=== PATIENT | female | born 1980 | race Caucasian/White ===

== ENCOUNTER 2016-11-13 12:22 | Emergency (ER) | payer BC, OTHER ==
[~2016-11-13] VITALS: Ht 175.3 cm; Wt 69.8 kg
--- NOTE | ~2016-11-13 | EKG ---
[address] [address] ELECTROCARDIOGRAM REPORT Name: SHELL DIAZ [id number] Admission: 11/13/16 Attend Phys: Discharge: 11/13/16 Date of : 80 Report #: [id number] THIS REPORT FOR: //name// [facility] ED Test Date: 2016-11-13 Test Time: 12:58:46 Pat Name: SHELL DIAZ Department: Room: Gender: F [employer]: pedro : 1980 Requested By: Donna Lindo Order Number: [id number] MD: Bin Higgins Measurements Intervals [place] Rate: 87 P: 80 [place]: 160 QRS: 69 QRSD: 78 T: 56 QT: 371 QTc: 447 Interpretive Statements Sinus rhythm No significant abnormality No previous ECG available for comparison Electronically Signed On 11-14-2016 7:58:20 CDT by Bin Higgins [email or web address] <ELECTRONICALLY SIGNED> By: Bin Higgins MD, [facility] 11/14/16 [id number] Bin Higgins MD, FACC /EPI
[2016-11-13 13:36] LABS: ABSOLUTE NEUTROPHILS 5.7 thou/uL (1.4-8.2); BASOPHILS 0.6 % (0.0-2.0); EOSINOPHILS 1.2 % (0.0-3.0); HEMATOCRIT 36.7 % (37.0-47.0); HEMOGLOBIN 12.3 gm/dL (12.0-15.0); MCH 28.6 pg (26.0-34.0); MCHC 33.6 g/dL (28.0-37.0); MCV 85.2 fL (80.0-100.0); MONOCYTES 7.3 % (1.0-8.0); PLATELET COUNT 254 thou/uL (150-400); POLYS 58.9 % (36.0-66.0); RBC 4.31 mil/uL (4.20-5.00); RDW 13.6 % (10.5-14.5); WBC 9.8 thou/uL (4.0-11.0)
[2016-11-13 13:40] LABS: MANUAL DIFF NO
[2016-11-13 13:46] LABS: ANION GAP 7 mmol/L (7-16); BUN 11 mg/dL (7-18); CALCIUM 8.3 mg/dL (8.5-10.1); CHLORIDE 109 mmol/L (98-107); CO2 27 mmol/L (21-32); CREATININE 0.7 mg/dL (0.6-1.0); GLUCOSE 84 mg/dL (74-106); SODIUM 143 mmol/L (136-145)
[2016-11-13 13:56] LABS: ALBUMIN 3.3 g/dL (3.4-5.0); ALKALINE PHOSPHATASE 80 U/L (46-116); SGOT 15 U/L (15-37); SGPT 21 U/L (30-65); TOTAL BILIRUBIN 0.2 mg/dL (<0.1-1.0); TOTAL PROTEIN 6.9 g/dL (6.4-8.2); TROPONIN-I < 0.04 ng/mL (<0.04-0.07)
[2016-11-13] MEDS ORDERED: ESTRADIOL 1 MG T1 M1 PO (14:47)
[2016-11-13] MEDS ORDERED: PROVENTIL HFA6.7 G1 INH (15:24)
[2016-11-13] MEDS ORDERED: ZPAK PO (15:24)
[2016-11-13 15:32] VITALS: BP 118/61
== END 2016-11-13 15:32 | disposition home or self-care (01) ==
LOC: ER 12:22
PROVIDERS: Physician Assistant
DX: J18.9 Pneumonia, unspecified organism (principal); Z90.710 Acquired absence of both cervix and uterus